=== PATIENT | female | born 1980 | race Caucasian/White ===

== ENCOUNTER 2019-01-11 10:36 | Emergency (ER) | payer BC, OTHER ==
[2019-01-11] MEDS ORDERED: Sodium Chloride 0.9% 1,000 ML IV ONE (11:22)
[2019-01-11] MEDS ORDERED: Sodium Chloride 0.9% 10 ML Syringe FLUSH PRN (11:22)
--- NOTE | 2019-01-11 11:29 | EDM.PDOC ---
ED HPI GENERAL MEDICAL PROBLEM - General Chief Complaint: General Stated Complaint: DEHYDRATED Time Seen by Provider: 01/11/19 10:50 Source of Information: Reports: Patient, Provider History Limitations: Reports: No Limitations - History of Present Illness INITIAL COMMENTS - FREE TEXT/NARRATIVE: The patient presents from the walk in clinic. She was referred to us by Gabby Ramirez. The patient started having a facial rash over a week ago. She was found to have acute maxillary sinusitis, bilateral eye swelling and fatigue. She was referred to optometry and they found some WBCs in her anterior chamber. That has cleared up but she still has dry eyes with some redness. She has no facial rash any more but she has fatigue. She had a low grade temp of 99.9 a few days ago but she does not feel like she has a temp and has no chills. She no ear pain, sore throat or headache. She has no chest pain, shortness of breath, nausea or vomiting. When Gabby examined her at the clinic the patient had some RUQ pain. An US was done and it shows increased gallbladder wall thickness measuring 4mm. Cholelithiasis, trace pericholecystic fluid. Positive sonographic Deleon's sign. Normal appearance of the pancreas. Constellation of findings can be seen with acute cholecystitis. They did labs and the patient has an elevated WBC to 21. She has been on prednisone. Her DUANE was normal. Her CRP went up from 5 to 10. Her lactic acid was 3. The patient has no abdominal pain but she did on exam. She has no nausea and vomiting. Onset: Gradual Duration: Week(s): Location: Reports: Abdomen Quality: Reports: Ache Severity: Mild Improves with: Reports: None Worsens with: Reports: None Associated Symptoms: Denies: Chest Pain, Cough, Fever/Chills, Headaches, Nausea/ Vomiting, Shortness of Breath Generalized Pain Score (Numeric/FACES): 4 - Related Data Allergies Allergy/AdvReac Type Severity Reaction Status Date / Time hydrocodone Allergy Hives Verified 01/11/19 10:49 naproxen [From Aleve] Allergy Cannot Verified 01/11/19 10:49 Remember oxycodone Allergy Hives Verified 01/11/19 10:49 Home Meds: Home Meds Amoxicillin/Clavulanate K [Augmentin 500-125 MG] 01/11/19 [History] Doxycycline [Vibramycin] 01/11/19 [History] Prednisolone Acetate/Pf [Prednisolone Acet 1% Eye Drop] 01/11/19 [History] predniSONE 01/11/19 [History] Past Medical History HEENT History: Reports: Impaired Vision 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: Psychiatric History: Reports: Anxiety - Infectious Disease History Infectious Disease History: Reports: Chicken Pox, Influenza - Past Surgical History HEENT Surgical History: Reports: Adenoidectomy, Oral Surgery, Tonsillectomy Female Surgical History: Reports: Hysterectomy, Tubal Ligation Other Female Surgeries/Procedures: partial hysterecomy Social & Family History - Family History Family Medical History: Noncontributory - Tobacco Use Smoking Status *Q: Current Some Day Smoker Years of Tobacco use: 10 Packs/Tins Daily: 0.2 - Caffeine Use Caffeine Use: Reports: Coffee - Recreational Drug Use Recreational Drug Use: No ED ROS GENERAL - Review of Systems Review Of Systems: See Below Constitutional: Reports: No Symptoms HEENT: Reports: Other (Eye redness and driness) Respiratory: Reports: No Symptoms Cardiovascular: Reports: No Symptoms Endocrine: Reports: No Symptoms GI/Abdominal: Reports: Abdominal Pain (On exam only). Denies: Nausea, Vomiting : Reports: No Symptoms Musculoskeletal: Reports: No Symptoms ED EXAM, GENERAL - Physical Exam Exam: See Below Exam Limited By: No Limitations General Appearance: Alert, No Apparent Distress Eye Exam: Bilateral Eye: Conjunctival Injection, EOMI Ears: Normal External Exam Nose: Normal Inspection Head: Atraumatic, Normocephalic Neck: Normal Inspection Respiratory/Chest: No Respiratory Distress, Lungs Clear, Normal Breath Sounds Cardiovascular: Regular Rate, Rhythm, No Edema, No Murmur GI/Abdominal: Soft, No Organomegaly, No Mass, Tender (Mild tenderness to the RUQ ) Back Exam: Normal Inspection Extremities: Normal Inspection Course - Vital Signs Last Recorded V/S: Last Vital Signs Temp 97.7 F 01/11/19 10:43 Pulse 88 01/11/19 10:43 Resp 18 01/11/19 10:43 BP 137/87 01/11/19 10:43 Pulse Ox 100 01/11/19 10:43 - Orders/Labs/Meds Orders: Active Orders 24 hr Category Date Time Status Notify Provider Consults [RC] ASDIRECTED Care 01/11/19 14:33 Active Peripheral IV Care [RC] . DIRECTED Care 01/11/19 11:22 Active Consult to Physician [CONS] Urgent Cons 01/11/19 14:32 Active HEPATITIS PANEL (4) [REF] Stat Lab 01/11/19 14:48 Ordered MEASLES/MUMPS/RUBELLA IMMUNITY [REF] Stat Lab 01/11/19 11:40 Received Sodium Chloride 0.9% [Saline Flush] Med 01/11/19 11:22 Active 10 ml FLUSH ASDIRECTED PRN Peripheral IV Insertion Adult [OM.PC] Routine Oth 01/11/19 11:22 Ordered Medication Orders Sodium Chloride (Saline Flush) 10 ml FLUSH ASDIRECTED PRN PRN Reason: Keep Vein Open Last Admin: 01/11/19 11:40 Dose: 10 ml Labs: Laboratory Tests 01/11/19 Range/Units 11:40 Monoscreen Negative (NEGATIVE) Meds: Medications Generic Name Dose Route Start Last Admin Trade Name Freq PRN Reason Stop Dose Admin Sodium Chloride 10 ml 01/11/19 11:22 01/11/19 11:40 Saline Flush FLUSH 10 ml ASDIRECTED PRN Administration Keep Vein Open Discontinued Medications Generic Name Dose Route Start Last Admin Trade Name Freq PRN Reason Stop Dose Admin Sodium Chloride 1,000 mls @ 1,000 mls/hr 01/11/19 11:22 01/11/19 11:42 Normal Saline IV 01/11/19 12:21 1,000 mls/hr ONETIME ONE Administration - Re-Assessments/Exams Free Text/Narrative Re-Assessment/Exam: 01/11/19 14:49 I ordered an IV NS 1L bolus, mono, measles mumps and rubella. Gabby called with the [place] report and there is a constellation of findings can be seen with acute cholecystitis. Increased gallbladder wall thickness measuring 4mm. Cholelithiasis. Trace pericholecystic fluid. Positive sonographic Deleon's sign. I am not sure if she has cholecystitis. I called Dr Morrow and she came to see the patient. She was not impressed with the patient's exam. She did recommend checking a hepatitis panel. Her total bili was elevated and AST was elevated. I have added that. Departure - Departure Time of Disposition: 15:10 Disposition: Home, Self-Care 01 Condition: Good Clinical Impression: Abdominal pain Qualifiers: Abdominal location: right upper quadrant Qualified Code(s): R10.11 - Right upper quadrant pain Leukocytosis Qualifiers: Leukocytosis type: unspecified Qualified Code(s): D72.829 - Elevated white blood cell count, unspecified - Discharge Information *PRESCRIPTION DRUG MONITORING PROGRAM REVIEWED*: Not Applicable *COPY OF PRESCRIPTION DRUG MONITORING REPORT IN PATIENT UMU: Not Applicable Referrals: Ava Ramirez MD [Primary Care Provider] - 1 Week Milagros Mccarthy MD [Physician] - 1 Week Forms: ED Department Discharge Additional Instructions: Drink plenty of fluids. Keep taking your medications as prescribed. Please return if you are worse. - My Orders Last 24 Hours: My Active Orders 01/11/19 11:22 Peripheral IV Care [RC] . DIRECTED Sodium Chloride 0.9% [Saline Flush] 10 ml FLUSH ASDIRECTED PRN Peripheral IV Insertion Adult [OM.PC] Routine 01/11/19 11:40 MEASLES/MUMPS/RUBELLA IMMUNITY [REF] Stat 01/11/19 14:32 Consult to Physician [CONS] Urgent 01/11/19 14:33 Notify Provider Consults [RC] ASDIRECTED 01/11/19 14:48 HEPATITIS PANEL (4) [REF] Stat - Assessment/Plan Last 24 Hours: My Active Orders 01/11/19 11:22 Peripheral IV Care [RC] . DIRECTED Sodium Chloride 0.9% [Saline Flush] 10 ml FLUSH ASDIRECTED PRN Peripheral IV Insertion Adult [OM.PC] Routine 01/11/19 11:40 MEASLES/MUMPS/RUBELLA IMMUNITY [REF] Stat 01/11/19 14:32 Consult to Physician [CONS] Urgent 01/11/19 14:33 Notify Provider Consults [RC] ASDIRECTED 01/11/19 14:48 HEPATITIS PANEL (4) [REF] Stat
--- NOTE | 2019-01-11 19:08 | PCM.CONS ---
H&P History of Present Illness - General Date of Service: 01/11/19 Source of Information: Patient, Provider History Limitations: Reports: No Limitations - History of Present Illness Initial Comments - Free Text/Narative: The patient is a 38-year-old female presented today from her primary care physician's [id number] for evaluation of possible gallbladder pathology. She is recently been ill with a skin lesion on her face. She's been undergoing treatment with antibiotics and steroids as well as workup for possible lupus. She will follow up with her primary care physician who found abdominal pain on exam. She had findings of small amount of pedicle cystic fluid with cholelithiasis on ultrasound of gallbladder. She had elevation in her WBC, with very mild elevation in her liver enzyme profile and a normal bilirubin level. The patient is currently denying any abdominal pain at rest. She did report some soreness/tenderness in the area of the right upper quadrant after her ultrasound was completed. She denies any nausea, vomiting. She has normal appetite. She denies any pale stools or dark brown urine. Generalized Pain Score (Numeric/FACES): 4 - Related Data Allergies/Adverse Reactions: Allergies Allergy/AdvReac Type Severity Reaction Status Date / Time hydrocodone Allergy Hives Verified 01/11/19 10:49 naproxen [From Aleve] Allergy Cannot Verified 01/11/19 10:49 Remember oxycodone Allergy Hives Verified 01/11/19 10:49 Home Medications: Home Meds Amoxicillin/Clavulanate K [Augmentin 500-125 MG] 01/11/19 [History] Doxycycline [Vibramycin] 01/11/19 [History] Prednisolone Acetate/Pf [Prednisolone Acet 1% Eye Drop] 01/11/19 [History] predniSONE 01/11/19 [History] Past Medical History HEENT History: Reports: Impaired Vision 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: Psychiatric History: Reports: Anxiety - Infectious Disease History Infectious Disease History: Reports: Chicken Pox, Influenza - Past Surgical History HEENT Surgical History: Reports: Adenoidectomy, Oral Surgery, Tonsillectomy Female Surgical History: Reports: Hysterectomy, Tubal Ligation Other Female Surgeries/Procedures: partial hysterecomy Social & Family History - Family History Oncologic: Reports: Breast, Prostate - Tobacco Use Smoking Status *Q: Current Some Day Smoker Years of Tobacco use: 10 Packs/Tins Daily: 0.2 - Caffeine Use Caffeine Use: Reports: Coffee - Recreational Drug Use Recreational Drug Use: No H&P Review of Systems - Review of Systems: Review Of Systems: See Below General: Reports: No Symptoms HEENT: Reports: Other (Recent eye infection) Pulmonary: Reports: No Symptoms Cardiovascular: Reports: No Symptoms Gastrointestinal: Reports: No Symptoms Genitourinary: Reports: No Symptoms Musculoskeletal: Reports: No Symptoms Skin: Reports: Rash Psychiatric: Reports: No Symptoms Neurological: Reports: No Symptoms Exam - Exam Exam: See Below - Vital Signs Vital Signs: Last Vital Signs Temp 36.5 C 01/11/19 10:43 Pulse 88 01/11/19 10:43 Resp 18 01/11/19 10:43 BP 137/87 01/11/19 10:43 Pulse Ox 100 01/11/19 10:43 Weight: 105.233 kg - Exam Quality Assessment: No: Supplemental Oxygen General: Alert, Oriented HEENT: Conjunctiva Clear, EOMI Lungs: Normal Respiratory Effort Cardiovascular: Regular Rate, Regular Rhythm GI/Abdominal Exam: Soft, No Distention, Tender (In right upper quadrant). No: Guarding Extremities: Normal Inspection, No Pedal Edema Peripheral Pulses: 2+: Dorsalis Pedis (L), Dorsalis Pedis (R) Skin: Warm, Dry, Intact Neurological: Cranial Nerves Intact Neuro Extensive - Mental Status: Alert, Oriented x3, Normal Mood/Affect - Patient Data Lab Results Last 24 hrs: Laboratory Results - last 24 hr 01/11/19 Range/Units 11:40 Monoscreen Negative (NEGATIVE) Consult PN Assessment/Plan (1) Abdominal pain SNOMED Code(s): 62125818 Code(s): R10.9 - UNSPECIFIED ABDOMINAL PAIN Qualifiers: Abdominal location: right upper quadrant Qualified Code(s): R10.11 - Right upper quadrant pain (2) Leukocytosis SNOMED Code(s): 278098853, 410949146 Code(s): D72.829 - ELEVATED WHITE BLOOD CELL COUNT, UNSPECIFIED Qualifiers: Leukocytosis type: unspecified Qualified Code(s): D72.829 - Elevated white blood cell count, unspecified Problem List Initiated/Reviewed/Updated: Yes Plan: 38-year-old female with abdominal pain on exam, possible hepatitis vs biliary colic. The patient is currently on steroid therapy. Therefore, her elevation in WBC is not a reliable marker of infection. She also has no pain symptoms with eating or pain in her abdomen at rest. This gives a very low clinical suspicion for cholecystitis. - Recommend completing steroid therapy prior to any operative intervention. - May continue his regular diet as tolerated - Consider lab evaluation for hepatitis No acute surgical intervention advised. These have patient follow up in 1 week for monitoring of abdominal pain in the clinic. We can continue to observe and evaluate for symptomatic cholelithiasis. Milagros Mccarthy MD General Surgery
== END 2019-01-11 15:24 | disposition home or self-care (01) ==
LOC: JD.ED 10:36
DX: D72.829 Elevated white blood cell count, unspecified (principal); R10.11 Right upper quadrant pain; F17.210 Nicotine dependence, cigarettes, uncomplicated; Z88.8 Allergy status to other drugs, medicaments and biological substances; Z98.890 Other specified postprocedural states; Z98.51 Tubal ligation status; Z90.710 Acquired absence of both cervix and uterus
CPT/HCPCS: 80074; 86308; 86735; 86762; 86765; 96360; 99282; J7040; 36415; 99283

== ENCOUNTER 2021-01-14 07:04 | Day surgery (SDC) | payer OTHER ==
[~2021-01-14 07:04] MED LIST: Dexamethasone 4 MG/ML 5 ML MDV ONE; Lactated Ringers 1,000 ML IV SCH; Lidocaine 1% 4 ML ONE; Lidocaine 1%/Sod Bicarbonate in NS 8.4% 1 ML Syringe IDERM PRN; Midazolam 1 MG/ML 2 ML SDV ONE; Propofol 200 MG/20 ML SDV ONE; Rocuronium 50 MG/5 ML Vial ONE; Sodium Chloride 0.9% 10 ML Syringe FLUSH PRN; fentaNYL 250 MCG/5 ML SDV ONE
[2021-01-14] MEDS ORDERED: ceFAZolin 1 GM Vial ONE (07:06)
[2021-01-14] MEDS ORDERED: Bupivacaine 0.5% 30 ML SDV ONE (07:23)
--- NOTE | 2021-01-14 07:24 | PCM.PREANE ---
Preanesthetic Assessment - Anesthesia/Transfusion/Family Hx Anesthesia History: Prior Anesthesia Without Reaction Family History of Anesthesia Reaction: No Transfusion History: No Prior Transfusion(s) Intubation History: Unknown - Review of Systems General: No Symptoms Pulmonary: No Symptoms Cardiovascular: No Symptoms Gastrointestinal: No Symptoms Neurological: No Symptoms Other: Reports: Thyroid Problems (pt states has nodules on thyroid has biopsy on 02-04-21 ) - Physical Assessment NPO Status Date: 01/13/21 NPO Status Time: 23:00 ASA Class: 2 Mental Status: Alert & Oriented x3 Airway Class: Mallampati = 2 Dentition: Reports: Normal Dentition Thyro-Mental Finger Breadths: 2 Mouth Opening Finger Breadths: 3 ROM/Head Extension: Full Lungs: Clear to Auscultation, Normal Respiratory Effort Cardiovascular: Regular Rate, Regular Rhythm - Allergies Allergies/Adverse Reactions: Allergies Allergy/AdvReac Type Severity Reaction Status Date / Time hydrocodone Allergy Hives Verified 01/13/21 12:07 naproxen [From Aleve] Allergy Cannot Verified 01/13/21 12:07 Remember oxycodone Allergy Hives Verified 01/13/21 12:07 - Acknowledgements Anesthesia Type Planned: General Anesthesia Pt an Appropriate Candidate for the Planned Anesthesia: Yes Alternatives and Risks of Anesthesia Discussed w Pt/Guardian: Yes Pt/Guardian Understands and Agrees with Anesthesia Plan: Yes PreAnesthesia Questionnaire HEENT History: Reports: Impaired Vision Cardiovascular History: Reports: None Respiratory History: Reports: None Gastrointestinal History: Reports: None Genitourinary History: Reports: None 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: Musculoskeletal History: Reports: Other (See Below) (inflammatory back pain, spondyloarthritis) Neurological History: Reports: None Psychiatric History: Reports: ADHD, Anxiety Endocrine/Metabolic History: Reports: None Hematologic History: Reports: None, Other (See Below) (newly diagnosed with splenomegaly/leukocytosis and has seen oncology with no concerns at this time) Immunologic History: Reports: None Oncologic (Cancer) History: Reports: None Dermatologic History: Reports: None - Infectious Disease History Infectious Disease History: Reports: Chicken Pox, Influenza - Past Surgical History Head Surgeries/Procedures: Reports: None HEENT Surgical History: Reports: Adenoidectomy, Oral Surgery, Tonsillectomy Cardiovascular Surgical History: Reports: None Respiratory Surgical History: Reports: None GI Surgical History: Reports: Cholecystectomy Female Surgical History: Reports: Hysterectomy, Tubal Ligation Other Female Surgeries/Procedures: partial hysterecomy Endocrine Surgical History: Reports: None Neurological Surgical History: Reports: None Musculoskeletal Surgical History: Reports: Carpal Tunnel Oncologic Surgical History: Reports: None Dermatological Surgical History: Reports: None - SUBSTANCE USE Tobacco Use Status *Q: Current Every Day Tobacco User Recreational Drug Use History: No - HOME MEDS Home Medications: Home Meds . [No Known Home Meds] 01/13/21 [History] - CURRENT (IN HOUSE) MEDS Current Meds: Current Medications Lactated Ringer's (Ringers, Lactated) 1,000 mls @ 125 mls/hr IV ASDIRECTED DENNY Stop: 01/14/21 23:00 Lidocaine/Sodium Bicarbonate (Lidocaine 1%/Sod Bicarbonate In Ns 8.4% 1 Ml Syringe) 0.25 ml IDERM ONETIME PRN PRN Reason: Prior to IV Start Stop: 01/14/21 18:00 Sodium Chloride (Sodium Chloride 0.9% 10 Ml Syringe) 10 ml FLUSH ASDIRECTED PRN PRN Reason: Keep Vein Open Stop: 01/14/21 18:00 Discontinued Medications Cefazolin Sodium (Cefazolin 1 Gm Vial) Confirm Administered Dose 2 gm .ROUTE .STK-MED ONE Stop: 01/14/21 07:07 Dexamethasone (Dexamethasone 4 Mg/Ml 5 Ml Mdv) Confirm Administered Dose 20 mg .ROUTE .STK-MED ONE Stop: 01/14/21 07:00 Fentanyl (Fentanyl 250 Mcg/5 Ml Sdv) Confirm Administered Dose 250 mcg .ROUTE .STK-MED ONE Stop: 01/14/21 07:00 Lidocaine HCl (Xylocaine-Mpf 1%) Confirm Administered Dose 4 mls @ as directed .ROUTE .STK-MED ONE Stop: 01/14/21 06:59 Midazolam HCl (Midazolam 1 Mg/Ml 2 Ml Sdv) Confirm Administered Dose 2 mg .ROUTE .STK-MED ONE Stop: 01/14/21 06:59 Propofol (Propofol 200 Mg/20 Ml Sdv) Confirm Administered Dose 200 mg .ROUTE .STK-MED ONE Stop: 01/14/21 06:59 Rocuronium [place] (Rocuronium 50 Mg/5 Ml Vial) Confirm Administered Dose 50 mg .ROUTE .STK-MED ONE Stop: 01/14/21 06:59
[2021-01-14] MEDS ORDERED: Ketorolac 30 MG/ML SDV ONE (08:16)
[2021-01-14] MEDS ORDERED: Ondansetron 4 MG/2 ML SDV ONE (08:16)
[2021-01-14] MEDS ORDERED: Lactated Ringers 1,000 ML ONE (08:17)
[2021-01-14] MEDS ORDERED: HYDROmorphone 0.5 MG/0.5 ML Syringe ONE (08:37)
--- NOTE | 2021-01-14 09:08 | PCM.OPNOTE ---
- General Post-Op/Procedure Note Date of Surgery/Procedure: 01/14/21 Operative Procedure(s): laparoscopy, pelvic cystectomy, bilateral partial salpingectomy Findings: large pelvic cyst, left hydrosalpinx Pre Op Diagnosis: pelvic pain, pelvic fluid collection Post-Op Diagnosis: Same, left hydrosalpinx Anesthesia Technique: General ET Tube Primary Surgeon: Dede Fuller Certified Juvenile Probation Officer: Hellen Smith Reason Certified Juvenile Probation Officer Was Necessary: patient safety, ease of procedure, skill of early childhood teacher assistant Pathology: pelvic cyst, bilateral tubal segments Fluid Replacement, Intraop: 1,200 Output, Urine Amount: 100 EBL in mLs: 5 Complications: None Condition: Good Free Text/Narrative:: The patient was taken to the Operating Room where general anesthesia was induced without complication. The patient was placed in dorsal lithotomy with Nikos Stirrups. The patient was then prepped and draped in the usual sterile fashion. A sterile bivalve speculum was placed into the vagina and a sponge stick inserted. Samaniego used to empty bladder. Attention was then turned to the patients abdomen where a Veress needle was inserted into the abdomen at the umbilicus while tenting the abdominal wall. Intraabdominal placement was confirmed with a drop test using a saline filled syringe and low intraabdominal pressure on low flow. A vertical infraumbilical incision was made in the umbilical fold and the 5 mm blunt trocar was inserted with the 5 mm laparoscope inserted through the trocar for direct visualization of abdominal entry through the clear view lens. Once intraabdominal placement was confirmed, the blunt obturator was removed and the laparoscope was inserted and exam of the patient's abdomen revealed the findings detailed above. The patient was placed in Trendelenburg position and the uterus was manipulated to reveal the pelvic findings detailed above as well. Attention was turned to placement of the accessory ports. With transillumination of the abdomen both left and right lateral 5 mm ports were placed under direct visualization. Pelvis was inspected revealing a large pelvic cyst that appeared to originate from the patient's left ovary. An atraumatic grasper this was elevated out of the pelvis. Fallopian tube noted adjacent to this. Cyst was somewhat pedunculated off the ovary on a very thin narrow stalk this area of connection was taken down with LigaSure. Cyst appeared very simple in nature as such decision was made to drain the cyst and suction auto travel counselor utilized to collect some of this fluid to send for cytology. The right lateral port was replaced with a 10 mm port and cyst was removed through this without difficulty. Attention turned to fallopian tubes. Tubal ligation had occurred in the past and there was hydrosalpinx on the right. Tube was grasped with a blunt grasper and transected underneath fallopian tube through mesosalpinx this was removed without difficulty. Attention turned to the contralateral fallopian tube which was normal in appearance but imbricated and was grasped and dissected under with LigaSure to remove this fallopian tube as well. Inspection of the pelvis confirmed hemostasis of bilateral dissection beds. The left and right lower quadrant trocars were then removed under direct visualization. The pneumoperitoneum was allowed to escape. The umbilical trocar was removed and lastly the camera was removed from the abdomen under direct visualization to confirm no herniation into the port site. The skin incisions were re-approximated with 4-0 Monocryl in a running subcuticular fashion and sealed with Dermabond. The patient was awakened and taken to the Recovery Room in stable condition.
[2021-01-14] MEDS ORDERED: Albuterol 0.083% 2.5 MG/3 ML Neb Soln ONE (09:15)
[2021-01-14] MEDS ORDERED: Albuterol 0.083% 2.5 MG/3 ML Neb Soln NEB ONE (09:21)
[2021-01-14] MEDS ORDERED: fentaNYL 100 MCG/2 ML SDV IVPUSH PRN (09:27)
[2021-01-14] MEDS ORDERED: HYDROmorphone 0.5 MG/0.5 ML Syringe IVPUSH PRN (09:27)
[2021-01-14] MEDS ORDERED: Ondansetron 4 MG/2 ML SDV IVPUSH PRN (09:27)
--- NOTE | 2021-01-14 09:35 | PCM.POSTAN ---
POST ANESTHESIA ASSESSMENT - MENTAL STATUS Mental Status: Alert, Oriented - VITAL SIGNS Vital Signs: Last Vital Signs Temp 36.6 C 01/14/21 07:10 Pulse 77 01/14/21 07:10 Resp 16 01/14/21 07:10 BP 126/66 01/14/21 07:10 Pulse Ox 96 01/14/21 07:10 - RESPIRATORY Respiratory Status: Supplemental Oxygen - CARDIOVASCULAR CV Status: Pulse Rate WNL, Blood Pressure Stable - GASTROINTESTINAL GI Status: No Symptoms - PAIN Pain Score: 3 - POST OP HYDRATION Hydration Status: Adequate & Stable
--- NOTE | 2021-01-14 09:36 | PCM.POSTAN ---
POST ANESTHESIA ASSESSMENT - MENTAL STATUS Mental Status: Alert, Oriented - VITAL SIGNS Vital Signs: Last Vital Signs Temp 36.6 C 01/14/21 07:10 Pulse 77 01/14/21 07:10 Resp 16 01/14/21 07:10 BP 126/66 01/14/21 07:10 Pulse Ox 97 01/14/21 09:24 - RESPIRATORY Respiratory Status: Supplemental Oxygen Free Text/Narrative:: Pt stating needing a sip of water as can't swallow, slight stridor noted. Sip of water given per PACU nurse. Stridor passes. HOB remains elevated. Saturations remain above 90 percent via O2 mask, lung sounds clear bilat. Pt states breathing ok. - CARDIOVASCULAR CV Status: Pulse Rate WNL, Blood Pressure Stable - GASTROINTESTINAL GI Status: No Symptoms - PAIN Pain Score: 3 - POST OP HYDRATION Hydration Status: Adequate & Stable (assessment at 0912)
--- NOTE | 2021-01-14 09:41 | PCM48HPAN ---
Post Anesthesia Note - EVALUATION WITHIN 48HRS OF ANESTHETIC Vital Signs in Normal Range: Yes Patient Participated in Evaluation: Yes Respiratory Function Stable: Yes Airway Patent: Yes Cardiovascular Function Stable: Yes Hydration Status Stable: Yes Pain Control Satisfactory: Yes Nausea and Vomiting Control Satisfactory: Yes Mental Status Recovered: Yes Vital Signs: Last Vital Signs Temp 36.6 C 01/14/21 07:10 Pulse 77 01/14/21 07:10 Resp 16 01/14/21 07:10 BP 126/66 01/14/21 07:10 Pulse Ox 97 01/14/21 09:24
[2021-01-14] MEDS ORDERED: traMADol 50 MG Tab PO ONE (10:38)
== END 2021-01-14 11:15 | disposition home or self-care (01) ==
LOC: JD.SDS 07:04
PROVIDERS: ATTEND Obstetrics & Gynecology
DX: D27.9 Benign neoplasm of unspecified ovary (principal); N70.11 Chronic salpingitis; N83.8 Other noninflammatory disorders of ovary, fallopian tube and broad ligament; R16.1 Splenomegaly, not elsewhere classified; D72.829 Elevated white blood cell count, unspecified; F17.210 Nicotine dependence, cigarettes, uncomplicated; Z88.8 Allergy status to other drugs, medicaments and biological substances
CPT/HCPCS: 00840; 36415; 80051; 85025; 86850; 86900; 86901; 88304; 94640; A9270-GY; J0690; J1100; J1170; J1885; J2250; J2405; J2704; J3010; J3490; J7120